=== PATIENT | female | born 1985 | race African-American/Black ===

== ENCOUNTER 2024-10-14 08:44 | Emergency (ER) | payer MEDICAID ==
[~2024-10-14] VITALS: Ht 160 cm; Wt 95.8 kg
--- NOTE | 2024-10-14 09:28 | ED.PDOC ---
Musculoskeletal HPI Comments A 39 year-old female, with a PMHX of Right Shoulder Dislocation, presents to the ED with a chief complaint of right arm tingling sensation with associated pain as of yesterday. Patient states tingling sensation started spontaneously, from right fingers radiating to her upper arm. Patient additionally reports that pain was moderate yesterday but became "unbearable" today. Upon evaluation by ED physician, patient cannot move her arm due to the pain and further denies associated symptoms of weakness, migraine, dizziness, chest pain, or palpitations. Chief Complaint: Upper Extremity Time Seen by MD: 09:18 Reviewed Notes: Nurses Notes, Medications, Allergies Allergies: Coded Allergies: NO KNOWN ALLERGIES (Unverified , 10/14/24) Home Meds Active Scripts Acetaminophen (Acetaminophen Extra Stren) 500 Mg Tab, 500 MG PO TID for 10 Days, #30 TAB Prov:DENEEN BLAKE MD 10/14/24 Dexamethasone (Decadron) 4 Mg Tb, 4 MG PO BID for 5 Days, #10 TAB Prov:DENEEN BLAKE MD 10/14/24 Information Source: Patient Mode of Arrival: Ambulatory Location: Right Extremity Location: Arm, Hand Timing: Days (1) Prehospital treatment: None Severity: Moderate Able to Move Extremity: No Bear Weight: No Pain: Moderate Hand Dominance: Right Circumstances: Spontaneous Onset of Symptoms: Spontaneous Symptoms: Pain Last Tetanus: UTD Associated signs and symptoms: Shoulder pain, Arm pain Past Medical History PAST MEDICAL HISTORY: Anemia, HTN Past Medical History (Other): Chronic Lower Back Pain and Scoliosis Surgical History: Family History Family History: Reviewed,noncontributory to illness, No family hx of Cancer, No family hx of DM, No family hx of Heart aide, No family hx of HTN, No family hx ofKidney aide, No family hx of Liver aide, No family hx of Lung aide, No family hx of Stroke Social History Smoker: Non-Smoker Alcohol: Denies ETOH Use Drugs: Denies Drug Use Lives In: Home Constitutional: denies: chills, diaphoresis, fatigue, fever, malaise, sweats, weakness, others EENTM: denies: blurred vision, double vision, ear bleeding, ear discharge, ear drainage, ear pain, ear ringing, eye pain, eye redness, hearing loss, mouth pain, mouth swelling, nasal discharge, nose bleeding, nose congestion, nose pain, photophobia, tearing, throat pain, throat swelling, voice changes, others Respiratory: denies: cough, hemoptysis, orthopnea, SOB at rest, shortness of breath, SOB with excertion, stridor, wheezing, others Cardiovascular: denies: chest pain, dizzy spells, diaphoresis, Dyspnea on exertion, edema, irregular heart beat, left arm pain, lightheadedness, palpitations, PND, syncope, others Gastrointestinal: denies: abdomen distended, abdominal pain, blood streaked bowels, constipated, diarrhea, dysphagia, difficulty swallowing, hematemesis, melena, nausea, poor appetite, poor fluid intake, rectal bleeding, rectal pain, vomiting, others Genitourinary: denies: abnormal vagina bleeding, burning, dyspareunia, dysuria, flank pain, frequency, hematuria, incontinence, pain, , vagina discharge, urgency, others Neurological: reports: tingling (To the Right arm ); denies: dizziness, fainting, headache, left sided numbness, left sided weakness, numbness, paresthesia, pre-existing deficit, right sided numbness, right sided weakness, seizure, speech problems, tremors, weakness, others Musculoskeletal: reports: others (Right arm pain and Tingling Sensation ); denies: back pain, gout, joint pain, joint swelling, muscle pain, muscle stiffness, neck pain Integumetry: denies: bruises, change in color, change in hair/nails, dryness, laceration, lesions, lumps, rash, wounds, others Allergic/Immunocompromised: denies: Difficulty Healing, Frequent Infections, Hives, Itching, others Hematologic/Lymphatic: denies: anemia, blood clots, easy bleeding, easy bruising, swollen glands, others Endocrine: denies: excessive hunger, excessive sweating, excessive thirst, excessive urination, flushing, intolerance to cold, intolerance to heat, unexplained weight gain, unexplained weight loss, others Psychiatric: denies: anxiety, bipolar disorder, depression, hopeless, panic disorder, schizophrenia, sleepless, suicidal, others All Other Systems: Reviewed and Negative Physical Exam General Appearance: Moderate Distress, Obese HEENT: Normal ENT Inspection, Pharynx Normal, TMs Normal Neck: Full Range of Motion, Non-Tender, Normal, Normal Inspection Respiratory: Chest Non-Tender, Lungs Clear, No Accessory Muscle Use, No Respiratory Distress, Normal Breath Sounds Cardiovascular: No Edema, No JVD, No Murmur, No Gallop, Normal Peripheral Pulses, Regular Rate/Rhythm Breast Exam: Deferred Gastrointestinal: No Organomegaly, Non Tender, No Pulsatile Mass, Normal Bowel Sounds, Soft Genitalia: Deferred Pelvic: Deferred Rectal: Deferred Extremities: No calf tenderness, Normal capillary refill, Normal inspection, No pedal edema, Tender Musculoskeletal : Location: Right Extremity Location: Shoulder Apperance: Limited ROM, Tenderness: Moderate Neurologic: Alert, brand sales consultant II-XII nml as Tested, No Motor Deficits, Normal Affect, Normal Mood, No Sensory Deficits Cerebellar Function: Normal Reflexes: NOT DONE Skin: Dry, Normal Color, Warm Peripheral Pulses: 1+ carotid (R), 1+ carotid (L) Lymphatic: No Adenopathy Was a procedure done? Was a procedure done?: No Differential Diagnosis EXT Differential Diagnosis: Fracture, Sprain, DJD, Strain, Neurovascular injury, Arthritis, Bursitis X-Ray, Labs, Meds, VS Vital Signs Date Time Temp Pulse Resp B/P (MAP) Pulse Ox O2 Delivery O2 Flow Rate FiO2 10/14/24 09:47 66 18 95 Room Air 10/14/24 09:47 99.2 66 18 146/103 (117) 95 99.2 10/14/24 09:00 98.0 76 18 154/106 (122) 98 98.0 Current Medications Medications (Trade) Dose Ordered Sig/Rena Route Start Time Stop Time Status Last Admin Ketorolac Tromethamine (Toradol Injection) 60 mg ONCE ONCE IM 10/14/24 09:30 10/14/24 09:31 DC 10/14/24 09:[address] [address] Ph: [phone] DIAGNOSTIC IMAGING Diagnostic Imaging Report : [id number] Signed PATIENT: SWETA THURMANT: [id number] UNIT: [id number] : 1985 LOC: ER ROOM / BED: / AGE / SEX: 39 / F ADM STATUS: REG ER SERVICE 8 ORDERING PHYSICIAN: DENEEN BLAKE MD PROCEDURE(s): RSHD2 - R SHOULDER 2+ VIEW XRAY REASON: EXQUISITE PAIN RIGHT SHOULDER NO INJURY ORDER NUMBER(s): [id number], ACCESSION NUMBER(s): [id number] CLINICAL INDICATION: EXQUISITE PAIN RIGHT SHOULDER NO INJURY TECHNIQUE: XY R SHOULDER 2+ VIEW XRAY Comparison: None FINDINGS/IMPRESSION: : There is no evidence of acute fracture or dislocation. Soft tissues are unremarkable. 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 Patient will be discharged home to follow up with her neurosurgeon Images Reviewed?: Images reviewed and evaluated by me Time of 1ST Reevaluation: 09:18 Reevaluation 1ST: Unchanged Time of 2ND Reevaluation: 11:06 Reevaluation 2ND: Unchanged Consultation: PCP, Other (Neurosurgery) Patient Education/Counseling: Diagnosis, Treatment, Prognosis, Need For Follow Up Family Education/Counseling: Diagnosis, Treatment, Prognosis, Need For Follow Up, No Family Present Medical Screening: No EMC Exist At This Time Departure 1 Departure Time of Disposition: 11:06 Impression: Primary Impression: Radiculitis of right cervical region Disposition: 01 HOME / SELF CARE / HOMELESS Condition: Stable Additional Instructions: Local heat and follow up with your PCP e-Prescriptions Acetaminophen (Acetaminophen Extra Stren) 500 Mg Tab 500 MG PO TID for 10 Days, #30 TAB Prov: DENEEN BLAKE MD 10/14/24 Dexamethasone (Decadron) 4 Mg Tb 4 MG PO BID for 5 Days, #10 TAB Prov: DENEEN BLAKE MD 10/14/24 Discharged With: Self Critical Care Note Critical Care Time?: No Stability Stability form required: No Heart Score Heart Score: Heart Score Response (Comments) Value History N/A 0 EKG N/A 0 Age <45 0 Risk Factors No known risk factors 0 Troponin N/A 0 Total 0 I personally scribed for DENEEN BLAKE MD ([email or web address]) on 10/14/24 at 09:28. Electronically submitted by Solange Reich ([facility]). I personally scribed for DENEEN BLAKE MD ([email or web address]) on 10/14/24 at 10:20. Electronically submitted by Solange Reich ([facility]). DENEEN BLAKE MD Oct 14, 2024 09:28
[2024-10-14] MEDS: KETOROLAC TROMETH 60MG/2ML VIAL IM ONE (09:41)
[2024-10-14 09:47] VITALS: BP 146/103; PULSE 66; RESP 18; TEMP 99.2; O2SAT 95
--- NOTE | 2024-10-14 09:54 | DVH ---
CLINICAL INDICATION: EXQUISITE PAIN RIGHT SHOULDER NO INJURY TECHNIQUE: XY R SHOULDER 2+ VIEW XRAY Comparison: None FINDINGS/IMPRESSION: : There is no evidence of acute fracture or dislocation. Soft tissues are unremarkable.
[2024-10-14] MEDS ORDERED: DEX4T PO (11:09)
[2024-10-14] MEDS ORDERED: ACET-6 PO (11:09)
== END 2024-10-14 11:22 | disposition home or self-care (01) ==
LOC: ER 08:44
DX: M54.12 Radiculopathy, cervical region (principal); M25.511 Pain in right shoulder; I10 Essential (primary) hypertension; D64.9 Anemia, unspecified; Z98.890 Other specified postprocedural states
CPT/HCPCS: 73030; 96372; 99283; J1885